=== PATIENT | male | born 1995 | race Caucasian/White ===

== ENCOUNTER 2017-03-01 18:45 | Emergency (ER) | payer MEDICAID, OTHER ==
[~2017-03-01] VITALS: Ht 180.3 cm; Wt 81.6 kg
[2017-03-01] MEDS ORDERED: LIDOCAINE 1% HCL (LOCAL ANESTH.) INJ 20ML MDV IJ ONE (21:00)
[2017-03-01 21:04] VITALS: BP 158/87
[2017-03-01] MEDS ORDERED: NEOMYCIN-BACITRACIN-POLYM UNITDOSE PKG TOP OINT TOP ONE (21:15)
== END 2017-03-01 21:57 | disposition home or self-care (01) ==
LOC: ER 18:48
DX: S01.111A Laceration without foreign body of right eyelid and periocular area, initial encounter (principal); W17.89XA Other fall from one level to another, initial encounter; Y93.51 Activity, roller skating (inline) and skateboarding; Y99.8 Other external cause status; Y92.89 Other specified places as the place of occurrence of the external cause
CPT/HCPCS: 12013; 99283; J2001

== ENCOUNTER 2017-03-11 13:43 | Emergency (ER) | payer MEDICAID ==
[~2017-03-11] VITALS: Ht 180.3 cm; Wt 81.6 kg
[2017-03-11 14:20] VITALS: BP 125/75
== END 2017-03-11 14:16 | disposition home or self-care (01) ==
LOC: ER 13:52
DX: S01.111D Laceration without foreign body of right eyelid and periocular area, subsequent encounter (principal); Z48.02 Encounter for removal of sutures